=== PATIENT | female | born 1970 | race Caucasian/White ===

== ENCOUNTER 2022-05-29 10:39 | Outpatient (CLI) | payer OTHER | END 2022-05-29 10:50 | disposition home or self-care (01) | LOC: SONOGRAMA 10:39 | DX: E03.9 Hypothyroidism, unspecified (principal); E04.1 Nontoxic single thyroid nodule ==

== ENCOUNTER 2022-09-07 13:18 | Outpatient (CLI) | payer OTHER | END 2022-09-07 13:26 | disposition home or self-care (01) | LOC: RAD 13:18 | PROVIDERS: ATTEND Orthopaedic Surgery | DX: M79.642 Pain in left hand (principal) ==